=== PATIENT | male | born 1995 | race Caucasian/White ===

== ENCOUNTER 2018-07-29 21:20 | Emergency (ER) | payer SELFPAY ==
[~2018-07-29] VITALS: Ht 177.8 cm; Wt 95.3 kg
[2018-07-29 21:31] VITALS: Ht 177.8 cm; Wt 95.3 kg
[2018-07-29 22:03] LABS: BASOPHILS 0.2 % (0-2); EOSINOPHILS 0.4 % (0-7); HEMATOCRIT 44.3 % (42.0-54.0); HEMOGLOBIN 15.6 g/dL (13.5-17.5); IMMATURE GRANULOCYTES 0.3 % (0-5); LYMPHOCYTES 19.8 % (15-50); MCH 30.5 pg (26.0-34.0); MCHC 35.2 g/dL (31.0-37.0); MCV 86.5 fL (80.0-100.0); MEAN PLATELET VOLUME 9.9 fL (7.4-10.4); MONOCYTES 6.9 % (2-11); NEUTROPHILS 72.4 % (40-80); PLATELET COUNT 229 10x3/uL (130-400); RBC 5.12 10x6/uL (4.20-6.10); RDW 12.3 % (11.5-14.5)
[2018-07-29 22:17] LABS: ALBUMIN 4.6 g/dL (3.4-5.0); ANION GAP 13.2 mmol/L (8-16); BILIRUBIN - TOTAL 0.38 mg/dL (0.2-1.3); CALCIUM 9.3 mg/dL (8.5-10.1); CARBON DIOXIDE 26.5 mmol/L (21.0-32.0); CREATININE - SERUM 1.3 mg/dL (0.6-1.3); POTASSIUM - SERUM 3.7 mmol/L (3.5-5.1); PROTEIN - SERUM 8.2 g/dL (6.4-8.2)
[2018-07-29 22:22] LABS: APPEARANCE CLEAR (CLEAR); BILIRUBIN NEGATIVE (NEGATIVE); COLOR YELLOW (YELLOW); GLUCOSE NEGATIVE (NEGATIVE); KETONE NEGATIVE (NEGATIVE); NITRITE NEGATIVE (NEGATIVE); PROTEIN NEGATIVE (NEGATIVE); SPECIFIC GRAVITY 1.025 (1.005-1.020); UROBILINOGEN NORMAL (NORMAL)
[2018-07-30] MEDS ORDERED: AUGMENTIN 875-11 TAB PO (00:52)
[2018-07-30] MEDS ORDERED: FLUTICASONE PRO16 GM NASAL (00:52)
[2018-07-30 01:03] VITALS: BP 128/70
== END 2018-07-30 01:03 | disposition home or self-care (01) ==
LOC: D.ER 21:20
PROVIDERS: Family Medicine
DX: R51 Headache (principal); J01.90 Acute sinusitis, unspecified; R42 Dizziness and giddiness; R11.0 Nausea

== ENCOUNTER 2018-08-19 18:47 | Emergency (ER) | payer SELFPAY ==
[~2018-08-19] VITALS: Ht 177.8 cm; Wt 97.7 kg
[~2018-08-19 18:47] MED LIST: AUGMENTIN 875-11 TAB PO; FLUTICASONE PRO16 GM NASAL
[2018-08-19 18:54] VITALS: Ht 177.8 cm; Wt 97.7 kg
[2018-08-19 20:23] LABS: BASOPHILS 0.2 % (0-2); EOSINOPHILS 1.1 % (0-7); HEMATOCRIT 41.9 % (42.0-54.0); HEMOGLOBIN 14.4 g/dL (13.5-17.5); IMMATURE GRANULOCYTES 0.3 % (0-5); LYMPHOCYTES 20.9 % (15-50); MCH 30.5 pg (26.0-34.0); MCHC 34.4 g/dL (31.0-37.0); MCV 88.8 fL (80.0-100.0); MEAN PLATELET VOLUME 10.2 fL (7.4-10.4); MONOCYTES 9.9 % (2-11); NEUTROPHILS 67.6 % (40-80); PLATELET COUNT 197 10x3/uL (130-400); RBC 4.72 10x6/uL (4.20-6.10); RDW 12.5 % (11.5-14.5); WBC 9.3 10x3/uL (4.8-10.8)
[2018-08-19 20:40] LABS: ALBUMIN 4.3 g/dL (3.4-5.0); ALKALINE PHOSPHATASE 98 U/L (46-116); ALT (SGPT) 26 U/L (10-68); BILIRUBIN - TOTAL 0.24 mg/dL (0.2-1.3); CALC OSMOLALITY 279 mosm/kg (275-300); CALCIUM 9.3 mg/dL (8.5-10.1); CARBON DIOXIDE 23.9 mmol/L (21.0-32.0); CHLORIDE - SERUM 103 mmol/L (98-107); CREATININE - SERUM 1.2 mg/dL (0.6-1.3); GLUCOSE 80 mg/dL (74-106); POTASSIUM - SERUM 3.6 mmol/L (3.5-5.1); PROTEIN - SERUM 7.9 g/dL (6.4-8.2); SODIUM 140 mmol/L (136-145); UREA NITROGEN 17 mg/dL (7-18); eGFR NON AFRICAN AMERICAN 78 mL/min (90-120)
[2018-08-19] MEDS ORDERED: CLEOCIN HCL300 MG PO (21:54)
[2018-08-19] MEDS ORDERED: NORCO 10-325 TA1 TAB PO (21:54)
[2018-08-19 22:08] VITALS: BP 148/71
== END 2018-08-19 22:09 | disposition home or self-care (01) ==
LOC: D.ER 18:47
PROVIDERS: Family Medicine
DX: L03.113 Cellulitis of right upper limb (principal)

== ENCOUNTER 2018-08-21 18:19 | Emergency (ER) | payer SELFPAY ==
[~2018-08-21] VITALS: Ht 177.8 cm; Wt 97.7 kg
[~2018-08-21 18:19] MED LIST changes: +CLEOCIN HCL300 MG PO; +NORCO 10-325 TA1 TAB PO
[2018-08-21 18:32] VITALS: Ht 177.8 cm; Wt 97.7 kg
[2018-08-21 22:03] VITALS: BP 133/74
== END 2018-08-21 22:04 | disposition home or self-care (01) ==
LOC: D.ER 18:19
DX: L03.113 Cellulitis of right upper limb (principal); F17.200 Nicotine dependence, unspecified, uncomplicated